=== PATIENT | female | born 1975 | race Caucasian/White ===

== ENCOUNTER 2017-10-18 21:48 | Emergency (ER) | payer BC, OTHER ==
[2017-10-18] MEDS ORDERED: KETOROLAC TROMETHAMINE 60 MG/2 ML SDV IM ONE (22:53)
--- NOTE | 2017-10-18 22:54 | ER Document Report ---
ED General - General Chief Complaint: Breathing Difficulty Stated Complaint: FLU LIKE SYMPTOMS Time Seen by Provider: 10/18/17 22:52 Mode of Arrival: Ambulatory Information source: Patient Notes: This is a 42-year-old female with no significant medical problems who presents to the emergency room with fever, chills, cough, pain with cough. Patient states her symptoms for the past day. TRAVEL OUTSIDE OF THE [place] IN LAST 30 DAYS: No - HPI Onset: Yesterday Onset/Duration: Gradual Quality of pain: Dull Severity: Moderate Pain Level: 3 Associated symptoms: Chills, Nonproductive cough, Fever Exacerbated by: Denies Relieved by: Denies Similar symptoms previously: No Recently seen / treated by doctor: No - Related Data Allergies/Adverse Reactions: No Known Allergies Allergy (Verified 10/18/17 22:45) Past Medical History - General Information source: Patient - Social History Smoking Status: Current Every Day Smoker Cigarette use (# per day): Yes - 1 pack per day Chew tobacco use (# tins/day): No Frequency of alcohol use: Social Drug Abuse: None Lives with: Family Family History: None Patient has suicidal ideation: No Patient has homicidal ideation: No - Medical History Medical History: Negative Renal/ Medical History: Denies: Hx Peritoneal Dialysis Past Surgical History: Reports: Hx Tubal Ligation Review of Systems - Review of Systems Constitutional: Chills, Fever EENT: Nose congestion Cardiovascular: No symptoms reported Respiratory: See HPI Gastrointestinal: No symptoms reported Genitourinary: No symptoms reported Female Genitourinary: No symptoms reported Musculoskeletal: No symptoms reported Skin: No symptoms reported Hematologic/Lymphatic: No symptoms reported Neurological/Psychological: No symptoms reported Physical Exam - Vital signs Vitals: Temp Pulse Resp BP Pulse Ox 98.5 F 105 H 20 150/87 H 100 10/18/17 22:40 10/18/17 22:40 10/18/17 22:40 10/18/17 22:40 10/18/17 22:40 Notes: Physical exam: GENERAL: 42-year-old female, alert and oriented 3, complaining of cough, congestion, diffuse myalgias HEAD: Atraumatic, normocephalic. EYES: Pupils equal round and reactive to light, extraocular movements intact, sclera anicteric, conjunctiva are normal. ENT: TMs normal, positive nasal congestion, oropharynx mild erythema without exudates. Moist mucous membranes. NECK: Normal range of motion, supple without obvious mass or JVD. LUNGS: Breath sounds clear to auscultation bilaterally and equal. No wheezes rales or rhonchi. HEART: Regular rate and rhythm without murmurs, rubs or gallops. ABDOMEN: Soft, normoactive bowel sounds. No tenderness to palpation. No guarding, no rebound. No masses appreciated. EXTREMITIES: Normal range of motion, no pitting or edema. No clubbing or cyanosis. NEUROLOGICAL: Cranial nerves II through XII grossly intact. Normal speech, moving all extremities. No meningismus. PSYCH: Normal mood, normal affect. SKIN: Warm, Dry, normal turgor, no rashes or lesions noted. Course - Vital Signs Vital signs: Temp Pulse Resp BP Pulse Ox 100.9 F H 107 H 17 107/59 L 96 10/19/17 00:10 10/19/17 00:10 10/19/17 00:10 10/19/17 00:10 10/19/17 00:10 - Diagnostic Test Radiology reviewed: Image reviewed, Reports reviewed - Chest x-ray shows no infiltrates - EKG Interpretation by [place] Rate: Normal Rhythm: NSR - KG shows normal sinus rhythm with a ventricular rate of 97, no acute ST-T wave changes Discharge - Discharge Clinical Impression: Influenza Condition: Stable Disposition: HOME, SELF-CARE Instructions: Influenza ([facility]) Additional Instructions: As we discussed, your influenza test was positive. Is important to stay home from work. Rest, drink plenty of fluids, take Advil or Tylenol for pain. Take the Tamiflu as prescribed. As we discussed, the Tamiflu can shorten the course of the flu. It has been associated with side effects such as behavioral changes and confusion. If you do decide to take this medicine, and start to have mood swings, discontinue the medicine. As with any medicine, if he developed a rash or any symptoms of an allergic reaction, stop taking the medicine. Prescriptions: Oseltamivir Phosphate [Tamiflu 75 mg Capsule] 75 mg PO BID #10 capsule Forms: Return to Work
[2017-10-18] MEDS ORDERED: IPRATROPIUM/ALBUTEROL 0.5-2.5 MG/3 ML AMPUL NEB ONE ×2 (23:12)
--- NOTE | 2017-10-18 23:18 | RADIOLOGY REPORT (SQ) ---
EXAM DESCRIPTION: CHEST PA/LAT CLINICAL HISTORY: 42 years, Female, cough, sob COMPARISON: None. FINDINGS: Normal lung volume, clear parenchyma, normal cardiac silhouette, and intact bony thorax. IMPRESSION: No acute cardiopulmonary findings. 2011 [employer]- All Rights Reserved
[2017-10-18 23:40] LABS: A TYPE INFLUENZA AG NEGATIVE (NEGATIVE); B INFLUENZA AG POSITIVE (NEGATIVE)
[2017-10-19 00:13] VITALS: BP 107/59
--- NOTE | 2017-10-19 09:22 | EKG REPORT ---
SEVERITY:- NORMAL ECG - SINUS RHYTHM : Confirmed by: Kelly Kent 19-Oct-2017 09:22:01
== END 2017-10-19 00:12 | disposition home or self-care (01) ==
LOC: ER 21:48
DX: J11.1 Influenza due to unidentified influenza virus with other respiratory manifestations (principal); R50.9 Fever, unspecified; R05 Cough; R09.81 Nasal congestion; M79.1 Myalgia; F17.210 Nicotine dependence, cigarettes, uncomplicated
CPT/HCPCS: 93005; 94640; 99285; 96372; 87804; 71046; 93010; J1885; J7620